=== PATIENT | female | born 1985 | race Caucasian/White ===

== ENCOUNTER 2017-03-14 20:21 | Emergency (ER) | payer BC ==
[~2017-03-14] VITALS: Ht 170.2 cm; Wt 100.0 kg
[~2017-03-14 20:21] MED LIST: HYDR200T42 PO; LABE100 PO; NORC10TA2 PO
[2017-03-14 20:23] VITALS: BP 135/83; PULSE 112; RESP 16; TEMP 103.1; O2SAT 100
[2017-03-14] MEDS ORDERED: HYDR-3583 PO (21:40)
[2017-03-14] MEDS ORDERED: IBUP800T23 PO (21:40)
--- NOTE | 2017-03-14 21:51 | PD ---
HPI . 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 Patient tells me that she has been unable to hold any food products down. She tells me that she has been vomiting frequently and has increased bouts of nausea. She also reports having a fever and MAXIMUM TEMPERATURE 103.1. She has not taken any [id number] medications. She believes she may have pneumonia as she has a child who was recently treated for this. She feels that her chest is heavy. She denies any chest pain or shortness of breath. She denies any diaphoresis. She also denies any chance of . In regards to her prior history of leukemia, she tells me she was released by hematology oncology and was told to continue to follow-up with her primary care provider. She follows with Dr. Junior as is her labs have been within normal limits. PFSH Past Medical History Arthritis: No Asthma: No Autoimmune Disease: No Blood Disorders: Yes Anxiety: No Depression: No Heart Rhythm Problems: No Cancer: Yes ([facility] LEUKEMIA 2009) Cardiovascular Problems: No High Cholesterol: No Chemotherapy: Yes (ACL) Chest Pain: No Congestive Heart Failure: No COPD: No Cerebrovascular Accident: No Diabetes: No Diminished Hearing: No Endocrine: No Gastrointestinal Disorders: No GERD: No Glaucoma: No Genitourinary: No Headaches: No Hepatitis: No Hiatal Hernia: No Heparin Induced Thrombocytopen: No Hypertension: No Immune Disorder: No Implanted Vascular Access Dvce: No Kidney Stones: No Musculoskeletal: No Neurologic: No Psychiatric: No Reproductive: No Respiratory: No Immunizations Current: Yes Migraines: Yes Myocardial Infarction: No Radiation Therapy: No Renal Failure: No Seizures: No Sickle Cell Disease: No Sleep Apnea: No Thyroid Disease: No Ulcer: No ?: Not LMP: 2 WEEKS AGO : 1 Para: 1 Tubal Ligation: Yes (reversal 2014) Past Surgical History Abdominal Surgery: Yes (deyanira) AICD: No Appendectomy: No Arteriovenous Shunt: No Cardiac Surgery: No Cholecystectomy: Yes Ear Surgery: No Endocrine Surgery: No Eye Surgery: No Gynecologic Surgery: Yes Insulin Pump: No Joint Replacement: No Neurologic Surgery: No Oral Surgery: No Pacemaker: No Social History Alcohol Use: No Tobacco Use: No Substance Use: No Allergies-Medications (Allergen,Severity, Reaction): Coded Allergies: Ceftazidime (Verified Allergy, Severe, Rash, 03/14/17) Reported Meds & Prescriptions Reported Meds & Active Scripts Active Phenergan (Promethazine HCl) 25 Mg Tablet 25 Mg PO Q6H PRN Zithromax Z-Damion (Azithromycin) 250 Mg Dspk 250 Mg PO DIRECTED 500 MG (2 tabs) day 1, then 1 tab days 2-5. Reported Hydrocodone-Acetaminophen 10-325 mg Tab 1 Tab PO Q4H PRN Ibuprofen 800 Mg Tab 800 Mg PO Q8H PRN Review of Systems General / Constitutional: Positive: Fever, Chills Eyes: No: Visual changes HENT: Positive: Sore Throat, No: Headaches Cardiovascular: No: Chest Pain or Discomfort Respiratory: No: Shortness of Breath Gastrointestinal: Positive: Nausea, Vomiting, No: Abdominal Pain Genitourinary: No: Dysuria Musculoskeletal: No: Pain Skin: No Rash Neurologic: No: Weakness Psychiatric: No: Depression Endocrine: No: Polydipsia Hematologic/Lymphatic: No: Easy Bruising Physical Exam Narrative GENERAL: AAO x 3, no acute distress, Well-nourished, well-developed patient. SKIN: Warm and dry. No visible rashes or bruising. HEAD: Normocephalic and atraumatic. EYES: No scleral icterus. No injection or drainage. EOM intact, PERRLA ENT: No nasal drainage noted. Mucous membranes pink. Airway patent. no posterior pharynx erythema, mild tonsillar edema, no exudates NECK: Supple, trachea midline. No JVD. no lymphadenopathy CARDIOVASCULAR: tachycardia without murmurs, gallops, or rubs. RESPIRATORY: breath sounds diminished R>L. No accessory muscle use. No rhonchi or rales. GASTROINTESTINAL: Abdomen soft, non-tender, nondistended. No rebound or guarding EXTREMITIES: No cyanosis or edema. BACK: Nontender without obvious deformity. No CVA tenderness. NEURO: CN II-12 intact PSYCH: AAO x 3, normal affect. Data Data Last Documented VS Vital Signs Date Time Temp Pulse Resp B/P Pulse Ox O2 Delivery O2 Flow Rate FiO2 03/14/17 20:23 103.1 112 16 135/83 100 Room Air Orders Complete Blood Count With Diff (03/14/17 21:57) Comprehensive Metabolic Panel (03/14/17 21:57) Lactic Acid Sepsis Protocol (03/14/17 21:57) Lipase (03/14/17 21:57) Blood Culture (03/14/17 21:57) Chest, Single Ap (03/14/17 21:57) Blood Glucose (03/14/17 21:57) Ecg Monitoring (03/14/17 21:57) Iv Access Insert/Monitor (03/14/17 21:57) Oximetry (03/14/17 21:57) Oxygen Administration (03/14/17 21:57) Ed Urine Pregnancytest Poc (03/14/17 21:57) Ondansetron Inj (Zofran Inj) (03/14/17 22:00) Acetaminophen (Tylenol) (03/14/17 22:00) Influenzae A/B Antigen (03/14/17 22:01) Sodium Chlor 0.9% 1000 Ml Inj (Ns 1000 M (03/14/17 22:30) Labs Laboratory Tests Test 03/14/17 22:10 White Blood Count 9.8 TH/MM3 Red Blood Count 3.99 MIL/MM3 Hemoglobin 12.3 GM/DL Hematocrit 36.0 % Mean Corpuscular Volume 90.4 FL Mean Corpuscular Hemoglobin 30.8 PG Mean Corpuscular Hemoglobin 34.1 % Concent Red Cell Distribution Width 13.4 % Platelet Count 233 TH/MM3 Mean Platelet Volume 8.2 FL Neutrophils (%) (Auto) 84.8 % Lymphocytes (%) (Auto) 8.4 % Monocytes (%) (Auto) 6.3 % Eosinophils (%) (Auto) 0.3 % Basophils (%) (Auto) 0.2 % Neutrophils # (Auto) 8.3 TH/MM3 Lymphocytes # (Auto) 0.8 TH/MM3 Monocytes # (Auto) 0.6 TH/MM3 Eosinophils # (Auto) 0.0 TH/MM3 Basophils # (Auto) 0.0 TH/MM3 CBC Comment DIFF FINAL Differential Comment Sodium Level 136 MEQ/L Potassium Level 3.8 MEQ/L Chloride Level 103 MEQ/L Carbon Dioxide Level 25.5 MEQ/L Anion Gap 8 MEQ/L Blood Urea Nitrogen 11 MG/DL Creatinine 0.67 MG/DL Estimat Glomerular Filtration 102 ML/MIN Rate Random Glucose 108 MG/DL Lactic Acid Level 1.0 mmol/L Calcium Level 8.3 MG/DL Total Bilirubin 0.4 MG/DL Aspartate Amino Transf 21 U/L (AST/SGOT) Alanine Aminotransferase 23 U/L (ALT/SGPT) Alkaline Phosphatase 76 U/L Total Protein 7.2 GM/DL Albumin 3.3 GM/DL Lipase 68 U/L [facility] Medical Decision Making Medical Screen Exam Complete: Yes Emergency Medical Condition: Yes Medical Record Reviewed: Yes Differential Diagnosis Influenza, sepsis, leukemia, pneumonia, gastroenteritis, enteritis Narrative Course 31-year-old female here with back pain for 2 days, fever, nausea and vomiting for a day. IV access was obtained, labs and imaging have been ordered. Differentials include influenza, sepsis, leukemia, pneumonia, gastritis, enteritis Workup is in progress. I provided her with Zofran, IV fluids and Tylenol. Laboratory Tests Test 03/14/17 22:10 White Blood Count 9.8 TH/MM3 Red Blood Count 3.99 MIL/MM3 Hemoglobin 12.3 GM/DL Hematocrit 36.0 % Mean Corpuscular Volume 90.4 FL Mean Corpuscular Hemoglobin 30.8 PG Mean Corpuscular Hemoglobin 34.1 % Concent Red Cell Distribution Width 13.4 % Platelet Count 233 TH/MM3 Mean Platelet Volume 8.2 FL Neutrophils (%) (Auto) 84.8 % Lymphocytes (%) (Auto) 8.4 % Monocytes (%) (Auto) 6.3 % Eosinophils (%) (Auto) 0.3 % Basophils (%) (Auto) 0.2 % Neutrophils # (Auto) 8.3 TH/MM3 Lymphocytes # (Auto) 0.8 TH/MM3 Monocytes # (Auto) 0.6 TH/MM3 Eosinophils # (Auto) 0.0 TH/MM3 Basophils # (Auto) 0.0 TH/MM3 CBC Comment DIFF FINAL Differential Comment Sodium Level 136 MEQ/L Potassium Level 3.8 MEQ/L Chloride Level 103 MEQ/L Carbon Dioxide Level 25.5 MEQ/L Anion Gap 8 MEQ/L Blood Urea Nitrogen 11 MG/DL Creatinine 0.67 MG/DL Estimat Glomerular Filtration 102 ML/MIN Rate Random Glucose 108 MG/DL Lactic Acid Level 1.0 mmol/L Calcium Level 8.3 MG/DL Total Bilirubin 0.4 MG/DL Aspartate Amino Transf 21 U/L (AST/SGOT) Alanine Aminotransferase 23 U/L (ALT/SGPT) Alkaline Phosphatase 76 U/L Total Protein 7.2 GM/DL Albumin 3.3 GM/DL Lipase 68 U/L Chest x-ray reviewed and patient appears to have a pneumonia. This explains all of her symptoms. I will go ahead and treat her with azithromycin due to her drug allergy. Case has been discussed with Dr. Mckoy. I recommend repeat chest x-ray 7-10 days after completing antibiotics. Patient verbalized understanding of instructions, questions were answered, and thanked me for their care. I advised them if their condition worsens, please return to the nearest emergency room for further care. Diagnosis Primary Impression: Pneumonia Qualified Code: J18.9 - Pneumonia due to infectious organism, unspecified laterality, unspecified part of lung Additional Impression: Nausea & vomiting Qualified Code: R11.2 - Non-intractable vomiting with nausea, unspecified vomiting type Additional Instructions: Please return to emergency department if your symptoms return or worsen. Follow up with your primary care provider. Take medications as prescribed. As we discussed, you need to follow-up with her primary care provider and have a repeat chest x-ray 7-10 days after completing antibiotics. Med/Other Pt SpecificInfo: Prescription(s) given Scripts Promethazine (Phenergan)25 Mg [id number] Mg PO Q6H PRN (NAUSEA OR VOMITING) #10 TAB Ref 0 Prov:Heather Mckoy MD 03/14/17 Azithromycin (Zithromax Z-Damion)250 Mg [id number] Mg PO DIRECTED #1 DSPK Ref 0 500 MG (2 tabs) day 1, then 1 tab days 2-5. Prov:Heather Mckoy MD 03/14/17 Disposition: 01 DISCHARGE HOME Condition: Stable Ayana Pierre Mar 14, 2017 21:51
[2017-03-14] MEDS ORDERED: ONDANSETRON HCL 4 MG/2 ML VIAL IV PUSH ONE (22:00)
[2017-03-14] MEDS ORDERED: ACETAMINOPHEN 325 MG TAB PO ONE (22:00)
[2017-03-14] MEDS ORDERED: SODIUM CHLOR 0.9% 1000 ML INJ 1,000 ML IV ONE (22:30)
--- NOTE | 2017-03-14 22:32 | RADRPT ---
EXAM DATE/TIME: 03/14/2017 22:24 [facility] COMPARISON: CHEST SINGLE AP, July 24, 2013, 5:19. INDICATIONS : Fever, shortness of breath, and chest pain. MEDICAL HISTORY : None. SURGICAL HISTORY : None. ENCOUNTER: Initial ACUITY: 2 days PAIN SCORE: 5/10 LOCATION: Bilateral chest FINDINGS: Minimal patchiness is noted within the right lung base consistent with possible pneumonia. Clinical correlation is recommended. There is a questionable nodular density within the left lung base consis tent with nodular infiltrate or true pulmonary nodule. The heart is stable. CONCLUSION: 1. Minimal patchiness within the right lung base consistent with possible pneumonia. Clinical correl ation is recommended. 2. Questionable nodular density within the left lung base consistent with nodular infiltrate or true pulmonary nodule. Juan Tom MD on March 14, 2017 at 22:25 Board Certified Radiologist. This report was verified electronically.
[2017-03-14 22:33] LABS: AUTOMATED NEUTROPHIL # 8.3 TH/MM3 (1.8-7.7); BASOPHIL % 0.2 % (0.0-2.0); EOSINOPHIL % 0.3 % (0.0-4.0); HEMO FLAGS DIFF FINAL; LYMPH % 8.4 % (9.0-44.0); LYMPHOCYTE # 0.8 TH/MM3 (1.0-4.8); MEAN CELL VOLUME 90.4 FL (80.0-100.0); MEAN CORPUSCULAR HEMOGLOBIN 30.8 PG (27.0-34.0); MEAN CORPUSCULAR HGB CONC 34.1 % (32.0-36.0); MONO % 6.3 % (0.0-8.0); NEUT % 84.8 % (16.0-70.0); PLATELET COUNT 233 TH/MM3 (150-450); RED BLOOD COUNT 3.99 MIL/MM3 (4.00-5.30); RED CELL DISTRIBUTION WIDTH 13.4 % (11.6-17.2); WHITE BLOOD COUNT 9.8 TH/MM3 (4.0-11.0)
[2017-03-14 22:57] LABS: BLOOD UREA NITROGEN 11 MG/DL (7-18); GLOMERULAR FILTRATION RATE 102 ML/MIN (>89)
[2017-03-14 22:58] LABS: ALT (GPT) 23 U/L (10-53); ANION GAP 8 MEQ/L (5-15); AST (GOT) 21 U/L (15-37); BICARBONATE 25.5 MEQ/L (21.0-32.0); CHLORIDE 103 MEQ/L (98-107); POTASSIUM 3.8 MEQ/L (3.5-5.1); SODIUM (NA) 136 MEQ/L (136-145)
[2017-03-14 23:01] LABS: ALKALINE PHOSPHATASE 76 U/L (45-117); TOTAL BILIRUBIN ADULT 0.4 MG/DL (0.2-1.0)
[2017-03-14] MEDS ORDERED: ZITHTAB PO (23:04)
[2017-03-14] MEDS ORDERED: PROM25TA10 PO (23:11)
[2017-03-14 23:12] VITALS: O2SAT 99
== END 2017-03-14 23:24 | disposition home or self-care (01) ==
LOC: NEPC 20:21
DX: J18.9 Pneumonia, unspecified organism (principal); R11.2 Nausea with vomiting, unspecified
CPT/HCPCS: 71010; 80053; 83605; 83690; 85025; 87040; 87804; 96361; 96374; 99284; J2405; J7030